=== PATIENT | male | born 1985 ===

== ENCOUNTER 2023-06-06 07:55 | Outpatient (AMB) | payer OTHER, SELFPAY ==
[2023-06-06 08:02] VITALS: BP 122/78; PULSE 78; O2SAT 98; BMI 45.0
--- NOTE | 2023-06-06 08:02 | A.OFFPC_ITS ---
Vital Signs 06/06/23 08:02 Height 5 ft 10 in Weight 314 lb BMI 45.0 BP 122/78 Blood Pressure Location Lt brachial Position Sitting Pulse 78 Pulse Source Pulse Oximeter Pulse Oximetry (%) 98 Oxygen Delivery Method Room Air Intake Visit Reasons: Annual PE resheduled Intake Note: pt is here for annual exam Manager Printing Required: No Accompanied by: Self / Same As Patient Allergies No Known Allergies [No Known Allergies*] Allergy (Verified 06/06/23 08:14) Medication List - Last Reconciled 06/06/23 by MIGUE Armendariz No Known Home Meds Tobacco use date assessed: 06/06/23 Dental Screening Dental Screen Date: 06/06/23 Did you have a dental visit in the last 12 months?: Yes Did you have a dental problem in the last 6 months where you did not have access to dental care?: No Was dental information given to patient?: Patient has dentist HPI Annual PE resheduled HPI Details Pt is here for a PE. Will order labs. [facility] Surgical History No pertinent past surgical history Social History Housing: House Patient Tobacco Use Status: Never used Tobacco e-Cigarette/Vaping Use: Never Used Cognitive needs: No Hearing needs: No Vision needs: No Questionnaire PHQ-9 Over the last 2 weeks, how often have you been bothered by any of the following problems? 1. Little interest or pleasure in doing things: not at all 2. Feeling down, depressed, or hopeless: not at all 3. Trouble falling or staying asleep, or sleeping too much: not at all 4. Feeling tired or having little energy: not at all 5. Poor appetite or overeating: not at all 6. Feeling bad about yourself - or that you are a failure or have let yourself or your family down: not at all 7. Trouble concentrating on things, such as reading the newspaper or watching television: not at all 8. Moving or speaking so slowly that other people could have noticed. Or the opposite - being so fidgety or restless that you have been moving around a lot more than usual: not at all 9. Thoughts that you would be better off or of hurting yourself in some wa y: not at all Total score: 0 Depression Screening Interpretation: Negative Depression Screening Done: Yes 30532 - PHQ-9 Billing: Yes Source: Developed by Drs. Darron Jordan, Shona Agosto, Shaheen Soria and colleagues, with an educational cesario from [employer]. Thrive Questionnaire Date Thrive assessed: 06/06/23 I am a: Patient What is your living situation today?: I have a steady place to live Within the past 12 months, did the food you bought not last and you didn't have the money to get more?: Never true Within the past 12 months, did you worry whether your food would run out before you got money to buy more?: Never true Do you have trouble paying for medicines?: No Do you have trouble getting transportation to medical appointments?: No Do you have trouble paying your heating and electricity bill?: No Do you have trouble taking care of your child, family member or friend?: No Do you have trouble with day-to-day activities such as bathing, preparing meals, shopping, managing finances, etc.?: No Are you currently unemployed and looking for a job?: No Are you interested in more education?: No Please select the resources that you would like help with: None Currently or been in a relationship where the following occur: no concerns reported THRIVE Score: 0 AUDIT C Alcohol Use Questionnaire (AUDIT-C) 1. How often do you have a drink containing alcohol?: Never 2. How many drinks containing alcohol do you have on a typical day when you are drinking?: 1 or 2 3. How often do you have six or more drinks on one occasion?: Never Total Score: 0 Score Reviewed/Action Taken: Yes MONICO-7 AMB Questionnaire MONICO-7 Date MONICO - 7 assessed: 06/06/23 Feeling nervous, anxious, or on edge: 0 = Not at all Not being able to stop or control worryin = Not at all Worrying too much about different things: 0 = Not at all Trouble relaxin = Not at all Being so restless that it is hard to sit still: 0 = Not at all Becoming easily annoyed or irritable: 0 = Not at all Feeling afraid as if something awful might happen: 0 = Not at all Total MONICO-7 score (0-4 normal; 5-9 mild; 10-14 moderate; 15-21 severe): 0 Source: Developed by Drs. Darron Jordan, Shona Agosto, Shaheen Soria and colleagues, with an educational cesario from [employer]. MONICO-7 Assessment Billing MONICO-7 Assessment Tool: MONICO-7 Assessment 56404 Review of Systems Const Denies chills and Denies fever(s) Eyes Denies blurry vision ENT Denies vertigo, Denies dizziness and Denies sore throat Card Denies chest pain at rest, Denies chest pain with activity, Denies diaphoresis, Denies dyspnea and Denies dyspnea on exertion Resp Denies cough, Denies dyspnea, Denies dyspnea on exertion and Denies wheezing GI Denies abdominal pain, Denies melena, Denies hematochezia, Denies constipation, Denies diarrhea and Denies loose stools Denies hematuria Musc Denies numbness and Denies tingling Skin/Breast Denies lesions Neuro Denies vertigo, Denies dizziness, Denies numbness and Denies tingling Psych Denies anxiety, Denies depression, Denies homicidal ideation, Denies suicidal ideation and Denies other (substance abuse) Aller/Immun Denies wheezing Physical exam (Primary Care) Vital Signs: Last Vital Signs Pulse 78 06/06/23 08:02 BP 122/78 06/06/23 08:02 Pulse Ox 98 06/06/23 08:02 Oxygen Delivery Method Room Air 06/06/23 08:02 BMI result Body Mass Index 45.0 Tobacco/Smoking Status: Tobacco use Status Tobacco use date assessed 06/06/23 06/06/23 08:08 Patient Tobacco Use Status Never used Tobacco 06/06/23 08:08 e-Cigarette/Vaping Use Never Used 06/06/23 08:08 PHQ-9: PHQ-9 Score PHQ-9: Total score 0 06/06/23 08:14 Depression Screening Interpretation: Negative Thrive Assessment: Date of Thrive Assessment Date Thrive assessed 06/06/23 06/06/23 08:08 Currently or been in a relationship where the following occur: no concerns reported Const General: cooperative Nutritional Appearance: obese morbidly obese Orientation/consciousness: patient oriented x3 HENMT Head: Yes normal to inspection, Yes normocephalic and Yes atraumatic Ears: TM's normal bilaterally Eyes General: appearance normal, both eyes and all related structures Alignment and Position: alignment normal and position normal Neck Neck: Yes normal visual inspection and Yes no lymphadenopathy Thyroid: Thyroid normal Resp Effort & Inspection: normal respiratory effort Auscultation: clear to auscultation bilaterally Cardio Rate: regular rate Rhythm: regular rhythm Heart sounds: S1 normal heart sound present, S2 normal heart sound present and no murmurs GI Palpation (GI): Soft to palpation and nontender Auscultation: normal bowel sounds Male General Exam: Yes normal external exam Penis: normal penis Scrotum: scrotum normal, testes descended bilaterally and no inguinal hernias Testes: no testicular mass Skin Rashes: no rashes Neuro General: patient oriented x3, moves all extremities, no focal motor deficits and deep tendon reflexes 2+ bilaterally Romberg Test: Negative Psych Appearance: grossly normal Mental Status: mental status grossly normal Speech and movement: Normal speech and movement present Affect: normal affect Attitude: cooperative Thought process: Normal thought process present Thought content: Normal thought content present Insight: Good insight present (Psych) Judgement: Good judgement present (Psych) Assessment and Plan Assessment & Plan (1) Physical exam: Code(s): Z.00 - Encounter for general adult medical examination without abnormal findings Plan: Labs ordered Plan The patient agreed to the use of a medical detail representative for this encounter. Scribed for MIGUE Webster by Tess Villalobos medical detail representative, on 06/06/2023 at 08:10 EST. Orders: Orders Complete Blood Count Auto Diff Today Z00.00 - Encounter for general adult medical examination without abnormal findings Complete Blood Count Auto Diff 11 Months Z00.00 - Encounter for general adult medical examination without abnormal findings TSH reflex Free T4 11 Months Z00.00 - Encounter for general adult medical examination without abnormal findings UA CC w/rflx Micro + Cult 11 Months Z00.00 - Encounter for general adult medical examination without abnormal findings Comprehensive [place]. Panel Fast Today Z00.00 - Encounter for general adult medical examination without abnormal findings TSH reflex Free T4 Today Z00.00 - Encounter for general adult medical examination without abnormal findings UA CC w/rflx Micro + Cult Today Z00.00 - Encounter for general adult medical examination without abnormal findings Lipid Panel Today Z00.00 - Encounter for general adult medical examination without abnormal findings Comprehensive [place]. Panel Fast 11 Months Z00.00 - Encounter for general adult medical examination without abnormal findings Lipid Panel 11 Months Z00.00 - Encounter for general adult medical examination without abnormal findings Coding Level of Care Code Est Pt Prev Care 18-39y(50485) Diagnoses Physical exam Z00.00 Additional Codes MONICO-7 Assessment Billing - MONICO-7 Assessment Tool: MONICO-7 Assessment 20274 ([id number])
== END 2023-06-06 08:17 | disposition home or self-care (01) ==
PROVIDERS: PCP Nurse Practitioner Family; Visit Provider Nurse Practitioner Family
DX: Z00.00 Encounter for general adult medical examination without abnormal findings (principal)
CPT/HCPCS: 99395

== ENCOUNTER 2023-06-06 08:18 | Outpatient (REF) | payer OTHER, SELFPAY ==
[2023-06-06 11:25] LABS: MANUAL DIFF FLAG NO
[2023-06-06 11:35] LABS: Basophils Absolute Auto 0.1 X10*3/uL (0.0-0.2); Basophils Percent Auto 0.7 % (0-2); Eosinophils Absolute Auto 0.1 X10*3/uL (0.0-0.4); Eosinophils Percent Auto 2.1 % (0-4); Hematocrit 49.4 % (42.0-52.0); Imm Gran Abs Auto 0.03 X10*3/uL (0.00-0.03); Imm Gran Pct Auto 0.4 % (0.0-0.4); Lymphocytes Absolute Auto 2.9 X10*3/uL (1.2-4.9); Lymphocytes Percent Auto 41.8 % (20-40); Mean Corpuscular HGB Conc 32.4 g/dl (31.0-36.0); Mean Corpuscular Volume 92.5 fL (80.0-98.0); Mean Platelet Volume 10.4 fL (9.4-12.4); Monocytes Absolute Auto 0.6 X10*3/uL (0.1-1.2); Monocytes Percent Auto 9.4 % (2-11); Neutrophils Absolute Auto 3.1 x10*3/uL (2.0-8.3); Neutrophils Percent Auto 45.6 % (45-73); Platelet Count 378 X10*3/uL (160-400); Red Blood Count 5.34 X10*6/uL (4.60-5.80); Red Cell Distribution Width 12.1 % (11.0-16.0); White Blood Count 6.8 X10*3/uL (4.8-10.8)
[2023-06-06 11:39] LABS: Appearance Urine Clear; Color Urine Yellow; Glucose Urine UA Negative (Negative); Leukocyte Esterase Urine Negative (Negative); Nitrite Urine Negative (Negative); Specific Gravity - Urine 1.025 (1.005-1.025); Urine Blood Negative (Negative); Urine Ketones Negative (Negative); Urine Protein Negative (Neg-Trace)
[2023-06-06 12:13] LABS: Alanine Aminotransferase 47 U/L (0-40); Albumin Level 4.1 g/dL (3.5-5.0); Alkaline Phosphatase 58 U/L (39-117); Anion Gap 10 (12-20); Aspartate Amino Transferase 26 U/L (5-37); Bilirubin Total 0.4 mg/dL (0.0-1.0); Blood Urea Nitrogen 12 mg/dL (9-16); Calcium 9.4 mg/dL (8.4-10.2); Carbon Dioxide 29 mmol/L (22-29); Chloride 106 mmol/L (96-108); Cholesterol 232 mg/dL (<200); Estimated Glomerular Filt Rate > 60; Glucose Fasting 94 mg/dL (60-99); HDL Cholesterol 35 mg/dL (>40); LDL Cholesterol Calculated 157 mg/dL (<100); Potassium 4.2 mmol/L (3.3-5.1); Sodium 141 mmol/L (135-145); Total Protein 7.3 g/dL (6.5-8.0); Triglycerides 200 mg/dL (<150)
[2023-06-06 12:16] LABS: TSH reflex Free T4 2.54 uIU/mL (0.32-4.0)
== END 2023-06-06 08:19 | disposition home or self-care (01) ==
LOC: HO.HMGCLDS 08:18
PROVIDERS: PCP Nurse Practitioner Family; Visit Provider Nurse Practitioner Family
DX: Z00.00 Encounter for general adult medical examination without abnormal findings (principal); Z13.6 Encounter for screening for cardiovascular disorders
CPT/HCPCS: 36415; 80053; 80061; 81003; 84443; 85025

== ENCOUNTER 2023-06-25 08:54 | Outpatient (REF) | payer OTHER, SELFPAY ==
--- NOTE | ~2023-06-25 | US_ITS ---
EXAMINATION: US ABDOMEN COMPLETE CLINICAL INFORMATION: Abnormal levels of other serum enzymes. COMPARISON: Ultrasound abdomen 07/04/2016. TECHNIQUE: Real-time imaging of the abdominal viscera. Limited visualization due to bowel gas. FINDINGS: PANCREAS: Limited visualization of pancreatic tail and head. Imaged portion of pancreatic body is unremarkable. ABDOMINAL AORTA: Limited visualization. Imaged portion of distal abdominal aorta unremarkable. Poor visualization of [id number] abdominal aorta. INFERIOR VENA CAVA: Visualized portions are normal. LIVER: Increased hepatic parenchymal heterogeneity and echogenicity could be associated with hepatocellular disease/hepatic steatosis and severely limits visualization. Hypoechoic areas within the liver adjacent to the gallbladder may possibly represent areas of focal sparing within a fatty liver. Correlation with liver function tests and clinical exam recommended to determine further management. GALLBLADDER: A 4 mm gallbladder polyp is present. Gallbladder wall thickness of 3 mm. COMMON BILE DUCT: Abnormal in caliber measuring 0.7 cm in diameter. RIGHT KIDNEY: No hydronephrosis. No renal calculi. Limited visualization. The kidney measures 11.9 cm in maximum dimension. LEFT KIDNEY: No hydronephrosis. No renal calculi. Limited visualization. The kidney measures 12.7 cm in maximum dimension. SPLEEN: Mild splenomegaly. The spleen measures 13.0 cm in maximum dimension. FREE FLUID: None. US/US abdomen complete IMPRESSION: 1. Increased hepatic parenchymal heterogeneity and echogenicity could be associated with hepatocellular disease/hepatic steatosis and severely limits visualization. Hypoechoic areas within the liver adjacent to the gallbladder may possibly represent areas of focal sparing within a fatty liver. Common bile duct is abnormal in diameter measuring 0.7 cm. Correlation with liver function tests and clinical exam recommended to determine further management. 2. A 4 mm gallbladder polyp is present. Gallbladder wall thickness of 3 mm. 3. Mild splenomegaly, 13.0 cm.
== END 2023-06-25 08:55 | disposition home or self-care (01) ==
LOC: HO.HMGCX 08:54
PROVIDERS: PCP Nurse Practitioner Family; Visit Provider Nurse Practitioner Family
DX: R74.8 Abnormal levels of other serum enzymes (principal); E78.5 Hyperlipidemia, unspecified
CPT/HCPCS: 76700

== ENCOUNTER 2023-08-04 11:09 | Outpatient (AMB) | payer OTHER, SELFPAY ==
[2023-08-04 11:17] VITALS: BP 100/74; PULSE 65; TEMP 36.8; O2SAT 97; BMI 42.8
--- NOTE | 2023-08-04 11:17 | MHC.OFFWIV ---
Intake Vital Signs 08/04/23 11:17 Height 5 ft 10 in Weight 298 lb BMI 42.8 BP 100/74 Blood Pressure Location Rt brachial Position Sitting Pulse 65 Pulse Source Pulse Oximeter Temp 98.2 F Temp Source Oral Pulse Oximetry (%) 97 Oxygen Delivery Method Room Air Intake Visit Reasons: EST/bum on lip for over a month(linseyby) Intake Note: Pt is here today c/o bump on his lip [id number] Patient Tobacco Use Status: Never used Tobacco Allergies No Known Allergies [No Known Allergies*] Allergy (Verified 08/04/23 11:36) Medication List - Last Reconciled 08/04/23 by Amira Bird [facility] No Known Home Meds HPI HPI Comments History of Present Illness Details Here today with complaints of a painless bump near his lip on the right hand side. Reports it started 1 month ago 1 of the blue. He is tried picking it and squeezing it. Nothing came out of it. It did scabbed. Otherwise no at home remedies. Denies a history of cold sores. Denies any new partners. [facility] Surgical History No pertinent past surgical history Social History Housing: House Patient Tobacco Use Status: Never used Tobacco e-Cigarette/Vaping Use: Never Used Cognitive needs: No Hearing needs: No Vision needs: No Review of Systems Const All systems reviewed & are unremarkable except as noted in HPI and below Physical Exam Vital Signs: Last Vital Signs Temp 98.2 F 08/04/23 11:17 Pulse 65 08/04/23 11:17 BP 100/74 08/04/23 11:17 Pulse Ox 97 08/04/23 11:17 Oxygen Delivery Method Room Air 08/04/23 11:17 BMI result Body Mass Index 42.8 HEENT Head images: 1. Flesh colored raised wart like lesion on the vermilion border of the right lower lip Assessment & Plan Assessment & Plan (1) Wart of face: Code(s): B07.9 - Viral wart, unspecified Plan: . Plan This note is constructed using voice recognition software. While every effort has been made to ensure accuracy in interactive media marketing strategist, still errors may have been included Sometimes, these errors may affect the content or meaning of the given sentence . Medications: New desonide 0.05% 1 appl topical BID 15 grams 0RF nystatin apply to affected area 1 appl topical BID 30 days 30 grams 0RF Patient Instructions: The area appears to be a wart. We will treat with a topical steroid cream and antifungal. You should mix these 2 cream together an apply to the affected area only. Do not get in mouth. If this does not help advised him to follow up with primary care provider. He may need a referral to a rib sawyer for further evaluation and treatment should this not remedy his current issue. Coding Level of Care Code Est Pt Level 3 (90352) Diagnoses Wart of face B07.9
== END 2023-08-04 11:48 | disposition home or self-care (01) ==
PROVIDERS: PCP Nurse Practitioner Family; Visit Provider Nurse Practitioner Family
DX: B07.9 Viral wart, unspecified (principal)
CPT/HCPCS: 99051; 99213

== ENCOUNTER 2023-08-28 15:56 | Outpatient (REF) | payer OTHER, SELFPAY ==
--- NOTE | ~2023-08-28 | CT_ITS ---
EXAMINATION: CT ABDOMEN WITH CONTRAST CLINICAL INFORMATION: Other specified diseases of biliary tract. COMPARISON: Ultrasound abdomen 06/25/2023: Increased hepatic parenchymal heterogeneity and echogenicity could be associated with hepatocellular disease/hepatic steatosis and severely limits visualization. Hypoechoic areas within the liver adjacent to the gallbladder may possibly represent areas of focal sparing within a fatty liver. Common bile duct is abnormal in diameter measuring 0.7 cm. Correlation with liver function tests and clinical exam recommended to determine further management. TECHNIQUE: Contiguous axial thin section helical images of the abdomen were performed following the administration of oral contrast and 85 mL of Omnipaque 350 intravenous contrast. The data set was reformatted in the coronal and sagittal planes and reviewed on an independent workstation. This CT examination was performed using dose optimization techniques as appropriate, variously including the following: *Automated exposure control *Adjustment of mA and/or kV according to patient size (this includes techniques or standardized protocols for targeted exams where dose is matched to indication/reason for exam; i.e. extremities or head) *Use of iterative reconstruction technique DLP: 513 mGy-cm FINDINGS: LUNG BASES: The visualized lung bases are unremarkable. LIVER, GALLBLADDER, AND BILIARY TREE: The liver is prominent in size at 17 cm. Attenuation is heterogeneous and likely decreased although no precontrast imaging was performed. Hepatic steatosis was seen at the time of the prior ultrasound. No concerning focal hepatic lesion or biliary ductal dilatation is present. The gallbladder is unremarkable with no evidence of radiopaque gallstones, gallbladder wall thickening, or obvious pericholecystic inflammatory changes. The polyp seen on the ultrasound is not visualized on the CT. PANCREAS: Unremarkable. SPLEEN: Spleen is enlarged at 13.4 cm in greatest dimension. ADRENAL GLANDS: Unremarkable. KIDNEYS AND URETERS: The kidneys are normal in size, shape, and attenuation. No hydronephrosis, hydroureter, or calculi seen. There is some minor irregularity seen in a lower pole infundibulum and a mucosal abnormality cannot be excluded. No perinephric stranding. GASTROINTESTINAL TRACT: The small and large bowel are unremarkable. The appendix if present is quite short and unremarkable. No evidence of appendicitis. Mildly prominent lymph nodes are seen in the cecal mesentery the largest measuring 1.0 cm. ABDOMINAL WALL: No significant hernia is appreciated. LYMPH NODES: No retroperitoneal lymphadenopathy. Small lymph nodes in the cecal mesentery as described above. VASCULAR: Unremarkable. OSSEOUS STRUCTURES: Mild degenerative changes are present in the spine. There is some mild anterior wedging of T12. No bony destructive lesions. CT/CT abdomen w IV con IMPRESSION: 1. Enlarged fatty liver with splenomegaly. 2. No biliary ductal dilatation is seen. 3. Question of mucosal abnormality in lower pole infundibulum on the left. CT urography is recommended for further evaluation. 4. Incidental note made of mildly prominent lymph nodes in the cecal mesentery, mild degenerative changes in the spine and mild anterior wedging of T12.
[2023-08-28] MEDS: iohexoL 350 MG/ML 100 ML INFUS..BTL 85 ML IV (16:22)
== END 2023-08-28 15:57 | disposition home or self-care (01) ==
LOC: HO.CT 15:56
PROVIDERS: PCP Nurse Practitioner Family; Visit Provider Nurse Practitioner Family
DX: K83.8 Other specified diseases of biliary tract (principal)
CPT/HCPCS: 74160; Q9967

== ENCOUNTER 2023-11-13 07:53 | Outpatient (REF) | payer OTHER, SELFPAY ==
--- NOTE | ~2023-11-13 | CT_ITS ---
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 TECHNIQUE: Noncontrast helical scanning was performed with submillimeter collimation through the abdomen and pelvis. Postcontrast helical scanning was then repeated with submillimeter collimation through the abdomen and pelvis in the pyelographic/urographic phase using split dose technique with 85 mL of Omnipaque 350 intravenous contrast. Sagittal and coronal 2-D reconstructions were obtained. This CT examination was performed using dose optimization techniques as appropriate, variously including the following: *Automated exposure control *Adjustment of mA and/or kV according to patient size (this includes techniques or standardized protocols for targeted exams where dose is matched to indication/reason for exam; i.e. extremities or head) *Use of iterative reconstruction technique DLP: 1611 mGycm FINDINGS: KIDNEYS, URETERS, BLADDER: Specific attention was given to the kidneys, ureters, and bladder. NONCONTRAST: Punctate nonobstructing calculus mid right kidney 9.9 cm from posterolateral skin surface. POSTCONTRAST NEPHROGRAPHIC/UROGRAPHIC: Symmetric nephrograms. No discrete renal mass. Symmetric contrast excretion. No hydroureteronephrosis. No visible urothelial abnormality. The abnormality seen in the lower pole of the left kidney on the previous examination is not reproduced and may have been due to layering contrast in the collecting system. BLADDER: No discrete bladder mass. PELVIC VISCERA: The prostate appears normal. OTHER: LUNG BASES: The visualized lung bases are unremarkable. LIVER, GALLBLADDER, AND BILIARY TREE: The liver is normal in size, shape, and attenuation. No focal hepatic lesion or biliary ductal dilatation is present. The gallbladder is unremarkable with no evidence of radiopaque gallstones, gallbladder wall thickening, or obvious pericholecystic inflammatory changes. PANCREAS: No discrete mass. No ductal dilatation. SPLEEN: The spleen appears normal. ADRENAL GLANDS: No adrenal mass. GASTROINTESTINAL TRACT: The small and large bowel are normal in caliber. No focal bowel wall thickening or discrete bowel mass is appreciated. No inflammatory changes. ABDOMINAL WALL: No significant hernia is appreciated. LYMPH NODES: Again seen are mildly prominent cecal mesenteric lymph nodes. VASCULAR: Mild infrarenal atherosclerosis. No aneurysm. OSSEOUS STRUCTURES: No destructive osseous lesions. Mild degenerative changes in the spine. Mild anterior wedge compression at T12 is stable. CT/CT urogram IMPRESSION: Punctate nonobstructing calculus in the mid right kidney. The abnormality seen in the lower pole of the left kidney on the previous examination is not reproduced and may have been due to layering contrast in the collecting system. Other chronic and incidental findings as above. Electronically signed by: Aj Suresh MD 11/29/2023 11:22 AM EDT
[2023-11-13] MEDS: iohexoL 350 MG/ML 100 ML INFUS..BTL IV (08:35)
== END 2023-11-13 07:54 | disposition home or self-care (01) ==
LOC: HO.CT 07:53
PROVIDERS: PCP Internal Medicine; Visit Provider Internal Medicine
DX: Q63.9 Congenital malformation of kidney, unspecified (principal)
CPT/HCPCS: 74178; Q9967

== ENCOUNTER 2024-03-06 14:27 | Outpatient (AMB) | payer OTHER, SELFPAY ==
[2024-03-06 14:41] VITALS: BP 102/74; PULSE 66; O2SAT 98; BMI 46.2
--- NOTE | 2024-03-06 14:41 | A.OFFPC_ITS ---
Vital Signs 03/06/24 14:41 Height 5 ft 10 in Weight 322 lb BMI 46.2 BP 102/74 Blood Pressure Location Rt brachial Position Sitting Pulse 66 Pulse Source Pulse Oximeter Pulse Oximetry (%) 98 Oxygen Delivery Method Room Air Intake Visit Reasons: vasectomy referral Intake Note: pt is here for vasectomy referral Regulator Inspector Required: No Accompanied by: Self / Same As Patient Allergies No Known Allergies [No Known Allergies*] Allergy (Verified 03/06/24 17:36) Medication List - Last Reconciled 03/06/24 by MIGUE Armendariz desonide 0.05% 1 appl topical BID nystatin 1 appl topical BID 30 days Tobacco use date assessed: 06/06/23 Dental Screening Dental Screen Date: 06/06/23 HPI vasectomy referral HPI Details Chief Complaint consultation for a vasectomy. History of Present Illness The patient is a 38-year-old male presenting for a vasectomy consultation. He reports soreness in the neck, which was first mentioned during the conversation but did not specify the exact duration. No specific aggravating or alleviating factors were discussed. The patient mentioned that his neck feels sore and has been persistent. Additionally, the patient is seeking a vasectomy after agreeing with his , particularly given their [id number]-ehc and [id number] children. Social History - Employment: Boss at a workplace, invol alan in driving - Family Status: , with two child quoc aged two months and three years - Family Planning: Considering a vasecto my for family planning Health Maintenance - Discussed stress management efforts Review of Systems - denies any CP, SOB, HOUSER, fevers, chills , N/V Physical Exam General: Cooperative, healthy appearing, comfortable, no acute distress and well developed Orientation: Patient oriented x3 Limitations: No limitations Head: Normal to inspection Ears: Hearing grossly normal bilaterally Nose: Normal external nose present Face and sinus: Normal facial exam Eyes: Appearance normal, both eyes and all related structures Neck: Sore Respiratory: Normal respiratory effort and able to speak in complete sentences. Clear to auscultation bilaterally Cardiovascular: Regular rate and rhythm. Normal S1 and S2 GI: Normal to inspection. Soft to palpation and nontender Skin: No rashes or lesions noted Neuro: Patient oriented x3 Extremities: Normal to inspection Results Plan - Discussed vasectomy with the patient; confirmed interest in undergoing the procedure. . Patient was informed and verbally consented to the use of an ambient scribe for clinic note documentation during this visit. Discussion Notes I discussed the vasectomy procedure with the patient, including its implications for family planning, benefits, and typical recovery process. The patient and his finalized their decision after their second child's . Patient Instructions - Schedule the vasectomy as planned, and follow preoperative instructions once scheduled.. [facility], [facility] Surgical History No pertinent past surgical history Social History Housing: House Patient Tobacco Use Status: Never used Tobacco e-Cigarette/Vaping Use: Never Used Cognitive needs: No Hearing needs: No Vision needs: No Questionnaire PHQ-9 Over the last 2 weeks, how often have you been bothered by any of the following problems? 1. Little interest or pleasure in doing things: not at all 2. Feeling down, depressed, or hopeless: not at all 3. Trouble falling or staying asleep, or sleeping too much: not at all 4. Feeling tired or having little energy: not at all 5. Poor appetite or overeating: not at all 6. Feeling bad about yourself - or that you are a failure or have let yourself or your family down: not at all 7. Trouble concentrating on things, such as reading the newspaper or watching television: not at all 8. Moving or speaking so slowly that other people could have noticed. Or the opposite - being so fidgety or restless that you have been moving around a lot more than usual: not at all 9. Thoughts that you would be better off or of hurting yourself in some way: not at all Total score: 0 Depression Screening Interpretation: Negative Depression Screening Done: Yes 90212 - PHQ-9 Billing: Yes Source: Developed by Drs. Darron Jordan, Shona Agosto, Shaheen Soria and colleagues, with an educational cesario from [email or web address]. Thrive Questionnaire Date Thrive assessed: 03/06/24 I am a: Patient What is your living situation today?: I have a steady place to live Within the past 12 months, did the food you bought not last and you didn't have the money to get more?: I choose not to answer this question Within the past 12 months, did you worry whether your food would run out before you got money to buy more?: I choose not to answer this question Do you have trouble paying for medicines?: I choose not to answer this question Do you have trouble getting transportation to medical appointments?: I choose not to answer this question Do you have trouble paying your heating and electricity bill?: I choose not to answer this question Do you have trouble taking care of your child, family member or friend?: I choose not to answer this question Do you have trouble with day-to-day activities such as bathing, preparing meals, shopping, managing finances, etc.?: I choose not to answer this question Are you currently unemployed and looking for a job?: I choose not to answer this question Are you interested in more education?: I choose not to answer this question Please select the resources that you would like help with: None Currently or been in a relationship where the following occur: I choose not to answer THRIVE Score: 0 AUDIT C Alcohol Use Questionnaire (AUDIT-C) 1. How often do you have a drink containing alcohol?: Never 3. How often do you have six or more drinks on one occasion?: Never Total Score: 0 Score Reviewed/Action Taken: Yes MONICO-7 AMB Questionnaire MONICO-7 Date MONICO - 7 assessed: 03/06/24 Feeling nervous, anxious, or on edge: 0 = Not at all Not being able to stop or control worryin = Not at all Worrying too much about different things: 0 = Not at all Trouble relaxin = Not at all Being so restless that it is hard to sit still: 0 = Not at all Becoming easily annoyed or irritable: 0 = Not at all Feeling afraid as if something awful might happen: 0 = Not at all Total MONICO-7 score (0-4 normal; 5-9 mild; 10-14 moderate; 15-21 severe): 0 Source: Developed by Drs. Darron Jordan, Shona Agosto, Shaheen Soria and colleagues, with an educational cesario from [email or web address]. MONICO-7 Assessment Billing MONICO-7 Assessment Tool: MONICO-7 Assessment 07693 Physical exam (Primary Care) Vital Signs: Last Vital Signs Pulse 66 03/06/24 14:41 BP 102/74 03/06/24 14:41 Pulse Ox 98 03/06/24 14:41 Oxygen Delivery Method Room Air 03/06/24 14:41 BMI result Body Mass Index 46.2 Tobacco/Smoking Status: Tobacco use Status Tobacco use date assessed 06/06/23 03/06/24 14:42 Patient Tobacco Use Status Never used Tobacco 03/06/24 14:42 e-Cigarette/Vaping Use Never Used 03/06/24 14:42 PHQ-9: PHQ-9 Score PHQ-9: Total score 0 03/06/24 15:14 Depression Screening Interpretation: Negative Thrive Assessment: Date of Thrive Assessment Date Thrive assessed 03/06/24 03/06/24 14:42 Currently or been in a relationship where the following occur: I choose not to answer Resp Effort & Inspection: normal respiratory effort Auscultation: clear to auscultation bilaterally Cardio Rate: regular rate Rhythm: regular rhythm Heart sounds: S1 normal heart sound present, S2 normal heart sound present and no murmurs Psych Appearance: grossly normal Mental Status: mental status grossly normal Speech and movement: Normal speech and movement present Affect: normal affect Attitude: cooperative Thought process: Normal thought process present Thought content: Normal thought content present Insight: Good insight present (Psych) Judgement: Good judgement present (Psych) Coding Level of Care Code Est Pt Level 3 (39306) Diagnoses Vasectomy evaluation Z30.09 Additional Codes MONICO-7 Assessment Billing - MONICO-7 Assessment Tool: MONICO-7 Assessment 66792 ( [id number]) PHQ-9 - 91711 - PHQ-9 Billing: Yes ([id number]) Assessment & Plan Assessment & Plan (1) Vasectomy evaluation: Code(s): Z30.09 - Encounter for other general counseling and advice on contraception Category: Medical Plan . Orders: Referrals Urology Referral Z98.52 - Vasectomy status
== END 2024-03-06 15:51 | disposition home or self-care (01) ==
PROVIDERS: PCP Nurse Practitioner Family; Visit Provider Nurse Practitioner Family
DX: Z30.09 Encounter for other general counseling and advice on contraception (principal)

== ENCOUNTER → 2024-03-06 14:27 | Outpatient (BNVA) | payer OTHER, SELFPAY | PROVIDERS: PCP Nurse Practitioner Family; Visit Provider Nurse Practitioner Family | DX: Z30.09 Encounter for other general counseling and advice on contraception (principal) | CPT/HCPCS: 96127 ==

== ENCOUNTER 2024-05-06 08:52 | Outpatient (AMB) | payer OTHER, SELFPAY ==
--- NOTE | 2024-05-06 09:01 | MHC.OFFVIS ---
Intake Visit Reasons: vasectomy consult Intake Note: New Patient presents for initial visit for vasectomy consult Urology Medications: none Blood Thinner: none Children#2, Expected Children#0 Medical Coding Instructor Required: No Accompanied by: Self / Same As Patient Allergies No Known Allergies [No Known Allergies*] Allergy (Verified 05/06/24 09:32) Medication List - Last Reconciled 05/06/24 by MIGUE Woodall No Known Home Meds HPI Comments Details: Rogelio is a very pleasant 38-year-old male patient of Dr. Bro. He presents to the office today for - vasectomy evaluation Vasectomy evaluation The patient presents for vasectomy consultation.? He is currently . He has fathered - 2 children, with a single partner.? The youngest child is - 3 months. His partner is aware and permissive for a vasectomy. Current form of control is rhythm. Current employment is store protection specialist The vasectomy may be complicated due to a history of no complicating issues. Patient education has been provided via AUA video, via printed information, risks of failure, recovery time, bruising and potential pain syndrome have been stressed Discussion today focused on the presence of vasectomy and the risks, benefits and alternatives that are available. Vasectomy as intended as a permanent form of control. Printed information and literature was provided to the patient. Overall there is a one in 2500 failure rate. This can occur at any time after vasectomy. Risks were discussed highlighting hematoma, spermatocele, epididymal congestion, development of sperm antibodies, and development of chronic pain estimated between 1-5%. The procedure was reviewed in detail. Anatomical diagrams of the male genitalia were used to explain the location of the vas deferens. The vas deferens will be transected, the proximal end will be cauterized, a metal clip would be applied to separate the 2 vas deferens ends. It was explained the procedure will be done in the office and takes approximately 10-15 minutes. Less common problems that arise with vasectomy include hematoma, bleeding, allergic reaction to anesthetic, epididymal infection, epididymal congestion, scrotal discomfort, spermatic leak, spermatic granuloma and the possibility of antisperm antibodies. He understands these risks and wishes to proceed. Consent was signed at the office today. He also understands that it takes 12 weeks for sperm to fully clear the system. He will need to provide a semen sample at 12 weeks and if this is not clear a 2nd sample at 16 weeks. Medical clearance to stop using protection will only be provided if he satisfies published criteria for sperm clearance. [facility] Surgical History No pertinent past surgical history Social History Housing: House Patient Tobacco Use Status: Never used Tobacco e-Cigarette/Vaping Use: Never Used Cognitive needs: No Hearing needs: No Vision needs: No Review of Systems Const All systems reviewed & are unremarkable except as noted in HPI and below Physical Exam Const General: cooperative, healthy appearing, comfortable, no acute distress, well developed, alert and awake Nutritional Appearance: overweight Orientation/consciousness: patient oriented x3 Limitations: no limitations HEENT Head: Yes normal to inspection, Yes normocephalic and Yes atraumatic Ears: hearing grossly normal bilaterally Eyes General: appearance normal, both eyes and all related structures Neck Neck: Yes normal visual inspection and Yes trachea midline Chest Chest palpation & inspection: normal inspection of the chest Resp Effort & Inspection: normal respiratory effort and able to speak in complete sentences Cardio Rate: regular rate GI Inspection: Yes normal to inspection General: Yes no CVA tenderness Back/Spine/Pelvis Back: no CVA tenderness Skin General skin exam: no rashes or lesions noted Neuro General: patient oriented x3 Extrem General: Yes normal to inspection Psych Appearance: grossly normal and well kempt Mental Status: mental status grossly normal Speech and movement: Normal speech and movement present and Clear speech present Affect: normal affect Attitude: cooperative Thought process: Normal thought process present Thought content: Normal thought content present Insight: Fair insight present (Psych) Judgement: Fair judgement present (Psych) Assessment & Plan Assessment & Plan (1) Vasectomy evaluation: Code(s): Z30.09 - Encounter for other general counseling and advice on contraception Category: Medical (2) Anxiety about health: Code(s): R45.89 - Other symptoms and signs involving emotional state Category: Medical Plan We discussed vasectomy at length risks and benefits; as noted above Consent was obtain. Prescriptions provided; we discussed importance of bringing medication to office day of procedure. We discussed in office semen analysis verses fellows kit. All questions were answered. Will schedule for vasectomy as discussed. Follow-up per doctor's orders; or sooner with any issues, concerns, and or questions. Medications: New tramadol Bring medication with you day of procedure to office; Take medication after arrival at office 50 mg PO Q8H PRN 7 tabs 0RF pain N43.3 - Hydrocele, unspecified diazepam Bring medication with you day of procedure to office; Take medication after arrival at office 2 mg PO BID 1 day PRN 2 tabs 0RF anxiety R45.89 - Other symptoms and signs involving emotional state Patient Instructions: The patient had an opportunity to ask questions regarding the treatment plan. All questions were answered. Physical exam, labs, and imaging were discussed and reviewed in detail. As well as risks, benefits, and discussion of treatment choices. No major barriers to understanding were identified. The patient expressed understanding and agreement with the above treatment plan. The patient was made aware they should contact our office by phone for worsening of their current condition, the appearance of new symptoms, or with any questions or concerns. Compliance is encouraged with any medications and follow up testing that is ordered. It is a privilege to be allowed the opportunity to participate in? your urological care.? Again, if you have any questions or concerns If you have any questions or concerns please do not hesitate to contact me. The office is [phone]. This note is constructed using voice recognition software. While every effort has been made to ensure accuracy echocardiograph technician errors may have been included. Yours sincerely, MIGUE Woodall Coding Level of Care Code New Pt Level 4 (56083) Diagnoses Vasectomy evaluation Z30.09 Anxiety about health R45.89
== END 2024-05-06 09:36 | disposition home or self-care (01) ==
PROVIDERS: PCP Nurse Practitioner Family; Visit Provider Nurse Practitioner Family
DX: Z30.09 Encounter for other general counseling and advice on contraception (principal); R45.89 Other symptoms and signs involving emotional state
CPT/HCPCS: 99204

== ENCOUNTER 2024-08-22 14:46 | Outpatient (AMB) | payer OTHER, SELFPAY ==
--- OUTSIDE RECORDS SUMMARY | 2024-08-22 14:48 | XMS_ITS | Clinical Summary ---
Author Organization [facility] Address [address] [place] [address] Care Team Providers Care Maintenance Journeyman Name Role Phone Unavailable Primary Care Provider Unavailabl e Allergies No known active allergies Medications No known medications Social History Tobacco Use Types Packs/Day Years Used Date Smoking Tobacco: Never Smokeless Tobacco: Never Sex and Gender Information Value Date Recorded Sex Assigned at Not on file Legal Sex Male 12:49 PM EDT Gender Identity Not on file Sexual Orientation Not on file Last Filed Vital Signs Vital Sign Reading Time Taken Comments Blood Pressure 121/81 07/18/2017 12:54 PM EDT Pulse 72 07/18/2017 12:54 PM EDT Temperature 36.2 ??C (97.1 ??F) 07/18/2017 12:54 PM E DT Respiratory Rate 18 07/18/2017 12:54 PM EDT Oxygen Saturation - - Inhaled Oxygen Concentration - - Weight - - Height - - Body Mass Index - - Plan of Treatment Health Maintenance Due Date Last Done Comments Hepatitis C Screening 1985 DTaP/Tdap/Td (1 - Tdap) 10/22/2003 Hep B (1 of 3 - 19+ 3-dose series) 2004 COVID-19 Vaccine (2023-2 5 season) 2023 Influenza (#1) 2023 Zoster (Shingrix) (1 of 2) 10/22/2035 HPV Vaccine Aged Out No longer eligi ble based on patient's age to complete this topic Hep A Aged Out No longer eligi ble based on patient's age to complete this topic Hib Aged Out No longer eligi ble based on patient's age to complete this topic Meningococcal ACWY Aged Out No longer eligible based on patient's age to complete this topic Pneumococcal Aged Out No longer eligi ble based on patient's age to complete this topic Insurance
--- NOTE | 2024-08-22 15:04 | A.OFFVIS_ITS ---
Intake Visit Reasons: vasectomy Intake Note: Patient is present for VASECTOMY Urology Medication:NONE Antibiotic Allergy:NONE Blood Thinner:NONE Rn Procedure Required: No Allergies No Known Allergies [No Known Allergies*] Allergy (Verified 08/22/24 15:09) HPI Comments Details: Rogelio is a very pleasant 38-year-old male patient of Dr. Bro. He presents to the office today for - vasectomy procedure Vasectomy procedure The patient presents for vasectomy procedure.? He is currently . He has fathered - 2 children, with a single partner.? The youngest child is - 3 months. His partner is aware and permissive for a vasectomy. Current form of control is rhythm. 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[employer] [employer] [facility] Surgical History No pertinent past surgical history Social History Housing: [place] Patient Tobacco Use Status: Never used Tobacco e-Cigarette/Vaping Use: Never Used Cognitive needs: No Hearing needs: No Vision needs: No Review of Systems Const Denies chills and Denies fever(s) Card Reports no additional complaints and Denies syncope Resp Denies cough GI Denies abdominal pain and Denies heartburn Reports as per HPI and Denies change in libido Neuro Denies syncope Psych Denies change in libido Endo Denies change in libido Physical Exam Const General: cooperative, healthy appearing, comfortable and no acute distress Orientation/consciousness: patient oriented x3 HEENT Face and sinus: Yes normal facial exam Mouth: moist mucous membranes Neck Neck: Yes normal visual inspection, Yes full ROM and Yes trachea midline Chest Chest palpation & inspection: normal inspection of the chest Resp Effort & Inspection: normal respiratory effort, able to speak in complete sentences and no respiratory distress GI Inspection: Yes normal to inspection Back/Spine/Pelvis Cervical Spine: normal cervical lordosis Thoracic/Lumbar Spine: thoracic and lumbar spine normal to inspection Skin General skin exam: no rashes or lesions noted Neuro General: patient oriented x3, gait normal, tone normal and moves all extremities Extrem General: Yes normal to inspection and Yes capillary refill normal Office Procedures Vasectomy Details: Preoperative diagnosis: Anxiety regarding Postoperative diagnosis: Anxiety regarding unplanned Procedure: Bilateral vasectomy Informed consent had been completed. Preoperative and postoperative instructions were provided to the patient. The patient has transportation to home identified at the completion of the procedure. Anti-anxiolytic prescription medication had been taken after consent verification and all questions answered. Tylenol with Codeine pain medication was also provided. The penis was elevated using a rubber band that was attached to the patient's shirt. Both vasa were palpated through the skin using a 3 finger technique and the penoscrotal junction was prepped with Betadine. After Betadine application the left vas was elevated using a 3 finger grasping technique. 1% lidocaine was used to create a subdermal bubble. Further anesthetic was then advanced using the 25-gauge needle along the vasa in a proximal fashion. Approximately 2 minutes were allowed to for local anesthetic uptake. Using the sharp spreading instrument the scrotal skin was spread longitudinally in line with the vasa until the subdermal layer had been divided. The vasa was then elevated from the scrotum using a ring clamp. Care was taken to elevate the superior portion of the vasa by rotating the ring clamp in a caudad direction. The battery powered cautery was used to divide the vasal sheath in a longitudinal direction on the exposed vasa and to strip the vasal sheath from the vasa. A 2nd narrower ring clamp was placed on the exposed vas and used to lift the vas from the vasal sheath. so it grasped the elevated vas. The cautery was used to divide vasal attachments and allow full exposure of a small loop of vasa. The sharp spreading instrument was then used to create a tunnel under the vasa and spread to allow the blood vessels of the vasa to retract from the vasa. A mosquito clamp was placed on the proximal portion of the vas. The battery- powered cautery was used to make a partial division in the proximal vas and then inserted in order to cauterize the proximal end of the vas. This was then cut and allowed to retract into the vasal sheath. The mosquito was then used to twist the vasa 180 degrees creating a fascial interposition. Using a 4-0 chromic suture the fascial interposition was sutured closed. The distal portion of the vas was then cut in order to obtain a segment of vasa. The vasa were allowed to retract back into the scrotum. A small snap was then used to approximate the skin edges and allow hemostasis without placement of a suture. A similar procedure was repeated on the right side. He tolerated the procedure well. Triple antibiotic was applied. A gauze was applied. An ice pack was applied to assist with minimizing swelling. Postoperative instructions were confirmed. He understands the need to continue to use control methods. A semen sample should be brought for inspection under the microscope in 10-12 weeks. CPT 97348 Vasectomy performed by: Ken Kiran Informed consent given: Yes Informed consent signed: Yes Time out checklist: patient, procedure, site marked/identified, positioning of patient, supplies available, allergies confirmed and team agrees on procedure Anesthetic used: other Specimens: vas segments not sent to pathology [id number] - Vasectomy Office Meds lidocaine (PF) 10 mg/mL (1 %) injection solution Performing Provider: Ken Kiran MD [place] [facility] [place] [facility] Administered by: Ken Kirna MD on 08/22/24 15:48 Dose Route Admin Location Dispensed Lot Number Expiration Date NDC Dampener Operator 2 mL Infiltration 10 mL Assessment & Plan Assessment & Plan (1) Anxiety about health: Code(s): R45.89 - Other symptoms and signs involving emotional state Category: Medical Plan Three-month follow-up Orders: Orders AMB Vasectomy Today R45.89 - Other symptoms and signs involving emotional state Medications: New lidocaine (PF) 2 mL Infiltration ONCE 2 mL 0RF R45.89 - Other symptoms and signs involving emotional state Patient Instructions: This note is constructed using voice recognition software. While every effort has been made to ensure accuracy farm contractor buyer errors may have been included. Imaging studies, laboratory and physical exam results were discussed and reviewed in detail. No major barriers to patient understanding were identified. An opportunity to ask questions regarding the treatment plan was provided. All questions were answered. The patient expressed understanding and agreement with the above treatment plan. The patient is aware they should contact our office by phone for worsening of their current condition or the appearance of new urologic symptoms. Compliance is encouraged with any medications and followup testing that is ordered. It is a privilege to participate in the urologic care of your patient. If you have any questions or concerns regarding treatment for the above conditions, or other urologic issues, please do not hesitate to contact me. The office telephone contact is [phone]. Sincerely, Dr Ken Kiran MD, [facility] - Urology Compassionate Specialist Care for the Genitourinary System Coding Level of Care Code Procedure Only Diagnoses Anxiety about health R45.89 CPT Codes Office Procedure - CPT: 28032 - Vasectomy ([id number])
== END 2024-08-22 15:38 | disposition home or self-care (01) ==
LOC: HO.HUSH 14:47
PROVIDERS: PCP Nurse Practitioner Family; Visit Provider Urology
DX: Z30.2 Encounter for sterilization (principal); R45.89 Other symptoms and signs involving emotional state
CPT/HCPCS: 55250

== ENCOUNTER → 2024-08-22 14:46 | Outpatient (BNVA) | payer OTHER, SELFPAY | PROVIDERS: PCP Nurse Practitioner Family; Visit Provider Urology | DX: Z30.2 Encounter for sterilization (principal); F41.8 Other specified anxiety disorders | CPT/HCPCS: 55250; J2003 ==

== ENCOUNTER 2024-11-20 08:28 | Outpatient (AMB) | payer OTHER, SELFPAY ==
--- NOTE | 2024-11-20 08:31 | MHC.OFFVIS ---
Intake Visit Reasons: 3m semen analysis Intake Note: Patient is present for POST-VASECTOMY Urology Medication:NONE Antibiotic Allergy:NONE Blood Thinner:NONE Barrel Washer Machine Required: No Accompanied by: Self / Same As Patient Allergies No Known Allergies (No Known Allergies*) Allergy (Verified 11/20/24 08:31) HPI Comments Details: Rogelio is a very pleasant 38-year-old male patient of Dr. Bro. He presents to the office today for - vasectomy Postprocedure No sperm seen on high-powered field evaluation Minimal discomfort postop Vasectomy The patient presents for vasectomy procedure.? He is currently . He has fathered - 2 children, with a single partner.? The youngest child is - 3 months. His partner is aware and permissive for a vasectomy. Current form of control is rhythm. Current employment is assistant store manager trainee [employer] Surgical History No pertinent past surgical history Social History Housing: House Patient Tobacco Use Status: Never used Tobacco e-Cigarette/Vaping Use: Never Used Cognitive needs: No Hearing needs: No Vision needs: No Review of Systems Const Denies chills and Denies fever(s) Card Reports no additional complaints and Denies syncope Resp Denies cough GI Denies abdominal pain and Denies heartburn Reports as per HPI and Denies change in libido Neuro Denies syncope Psych Denies change in libido Endo Denies change in libido Physical Exam Const General: cooperative, healthy appearing, comfortable and no acute distress Orientation/consciousness: patient oriented x3 HEENT Face and sinus: Yes normal facial exam Mouth: moist mucous membranes Neck Neck: Yes normal visual inspection, Yes full ROM and Yes trachea midline Chest Chest palpation & inspection: normal inspection of the chest Resp Effort & Inspection: normal respiratory effort, able to speak in complete sentences and no respiratory distress GI Inspection: Yes normal to inspection Back/Spine/Pelvis Cervical Spine: normal cervical lordosis Thoracic/Lumbar Spine: thoracic and lumbar spine normal to inspection Skin General skin exam: no rashes or lesions noted Neuro General: patient oriented x3, gait normal, tone normal and moves all extremities Extrem General: Yes normal to inspection and Yes capillary refill normal Assessment & Plan Assessment & Plan (1) Anxiety about health: Code(s): R45.89 - Other symptoms and signs involving emotional state Category: Medical Plan P.r.n. follow-up Patient Instructions: This note is constructed using voice recognition software. While every effort has been made to ensure accuracy forensic investigator errors may have been included. Imaging studies, laboratory and physical exam results were discussed and reviewed in detail. No major barriers to patient understanding were identified. An opportunity to ask questions regarding the treatment plan was provided. All questions were answered. The patient expressed understanding and agreement with the above treatment plan. The patient is aware they should contact our office by phone for worsening of their current condition or the appearance of new urologic symptoms. Compliance is encouraged with any medications and followup testing that is ordered. It is a privilege to participate in the urologic care of your patient. If you have any questions or concerns regarding treatment for the above conditions, or other urologic issues, please do not hesitate to contact me. The office telephone contact is [phone]. Sincerely, Dr Ken Kiran MD, [facility] [place] - Urology Compassionate Specialist Care for the Genitourinary System Coding Level of Care Code Est Pt Level 3 (28624) Diagnoses Anxiety about health R45.89
--- OUTSIDE RECORDS SUMMARY | 2024-11-20 09:07 | XMS_ITS | Clinical Summary ---
Author Organization [facility] Address [address] [place] [address] Care Team Providers [employer] Interpreter Name Role Phone Unavailable Primary Care Provider [...] 72 07/18/2017 12:54 PM EDT Temperature 36.2 C (97.1 F) 07/18/2017 12:54 PM EDT Respiratory Rate 18 07/18/2017 12:54 PM EDT [...] Vaccine (2023-2 5 season) 2023 Influenza (#1) 2024 Zoster (Shingrix) (1 of 2) 10/22/2035 HPV Vaccine (No Doses Required) Completed Hep A Aged Out No longer eligi ble based on patient's age to complete this topic Hib Aged Out No longer eligi ble based on patient's age to complete this topic Meningococcal ACWY Aged Out No longer eligible based on patient's age to complete this topic Pneumococcal Aged Out No longer eligi ble based on patient's age to complete [place] [id number]
== END 2024-11-20 09:11 | disposition home or self-care (01) ==
LOC: HO.HUSH 08:29
PROVIDERS: PCP Nurse Practitioner Family; Visit Provider Urology
DX: R45.89 Other symptoms and signs involving emotional state (principal)
CPT/HCPCS: 99024